=== PATIENT | female | born 1940 | race Caucasian/White ===

== ENCOUNTER → 2019-04-21 14:04 | Outpatient (CLI) | payer MEDICARE, OTHER, SELFPAY ==
--- NOTE | 2019-04-21 | DI.MRI.S_ITS ---
PROCEDURE: MR THORACIC SPINE WO CON INDICATIONS: DIFFUSE IDIOPATHIC SKELETAL HYPEROSTOSIS TECHNIQUE: Noncontrast sagittal T1 spine echo and T2 fast spin echo, sagittal STIR, axial T1 and T2 fast spin echo through the thoracic spine. COMPARISON: [facility] [place], CR, XR THORACIC SPINE 2 VIEWS, 03/26/2019, 10:47. FINDINGS: Image quality: Excellent. Alignment and Curvature: There is normal bony alignment. Bone Marrow: Marrow is of normal overall signal. No acute vertebral body compression fractures. Spinal Cord: Visualized spinal cord is normal in size and signal. A mild posterior transverse disc bulge is seen at T7-T8 without distortion of the adjacent mid thoracic cord. This disc bulge produces mild effacement of the anterior border of the thecal sac, but no focal nerve root impingement. A lesser degree of degenerative disc height reduction and disc desiccation is seen above and below but no nerve root impingement is found. Paraspinous Soft Tissues: No paravertebral masses. Miscellaneous: On axial images, central canal and foramina appear widely patent at all scanned levels. IMPRESSION: Only a mild degree of degenerative disc disease is seen along the thoracic spine, most prominent at T7-T8 where it is associated with a posterior transverse disc bulge is slightly greater at the midline then to the right and left. This is not associated with significant spinal or foraminal stenosis. No compression fracture found. No free herniated disc fragment is suspected. Dictated by: Cj Carmen M.D. on 04/21/2019 at 16:09 Approved by: Cj Carmen M.D. on 04/21/2019 at 16:11
== END ==
PROVIDERS: Visit Provider Physical Medicine & Rehabilitation
DX: M48.10 Ankylosing hyperostosis [Forestier], site unspecified (principal); M51.34 Other intervertebral disc degeneration, thoracic region
CPT/HCPCS: 72146

== ENCOUNTER 2019-10-19 09:25 | Outpatient (CLI) | payer MEDICARE, OTHER, SELFPAY ==
[2019-10-19] VITALS (10 sets, daily range): BP systolic 107–146; BP diastolic 60–74; PULSE 53–65; RESP 16–20; TEMP 36.4; O2SAT 94–100
--- NOTE | 2019-10-19 09:26 | DI.RAD.S_ITS ---
PROCEDURE: PAIN C/T TRANFORAMINAL INJECT INDICATIONS: RADICULOPATHY FINDINGS: Fluoroscopic spot filming was performed to verify placement of spinal needles at the T7-T8 level(s), as labeled on the films. Appropriate location(s) of the needle tip(s) was confirmed by injection of iodinated contrast. IMPRESSION: Fluoroscopy for pain management. Dictated by: Alee Moncada M.D. on 10/19/2019 at 11:25 Approved by: Alee Moncada M.D. on 10/19/2019 at 11:26
[2019-10-19] MEDS: MIDAZOLAM 5 MG/5 ML VIAL IV (10:26)
[2019-10-19] MEDS: IOPAMIDOL 15 ML VIAL 3 ML INJ (10:33)
[2019-10-19] MEDS: DEXAMETHASONE 10 MG/ML VIAL 20 MG INJ (10:34)
[2019-10-19] MEDS: BUPIVACAINE 0.25% (PF) VIAL 2 ML INJ (10:34)
--- NOTE | 2019-10-19 10:38 | PC.NURSE ---
ASSISTING PT OFF TABLE AND TRANSPORTING TO POST PROC AREA IN STABLE CONDITION. PASSING RN CARE OF PT OFF TO ASHLEIGH Guillen RN.
--- NOTE | 2019-10-19 10:43 | P.PCN_ITS ---
Procedures Date/Time Date of procedure: 10/19/19 Time of procedure: 10:44 General Procedure description: PREOP DIAGNOSIS 1. FORMAINAL STENOSIS WITH LE SYMPTOMS, POST OP DIAGNOSIS 1. FORMAINAL STENOSIS WITH LE SYMPTOMS, PROCEDURES 1. FLUOROSCOPICALLY GUIDED CONTRAST CONTROLLED TRANSFORAMINAL EPIDURAL STEROID INJECTION - RIGHT T8/9 TFESI PHYSICIAN: Silvino Cline, DO INDICATIONS Rommel is referred by YUE Toledo for treatment of Foraminal Stenosis with Right thoracic Symptoms FINDINGS Foraminal Nerve Root Compression secondary to disc disease and facet hypertrophy DESCRIPTION OF PROCEDURE Following review of allergy and review of potential side effects and complications, including, but not necessarily limited to, infection, allergic reaction, local tissue breakdown, stroke, temporary or permanent nerve injury, paralysis, and possible , the patient indicated that the patient understood and agreed to proceed. An informed consent document was signed by the patient, witnessed by a nurse, and placed in the patient's chart. Additionally, other treatment options including medications, modalities, and physical therapy were reviewed with the patient. After review of previous anaesthesic history and IV conscious sedation the patient was deemed safe to proceed with todays procedure with IV conscious sedation as ASA class II designation. Safety time-out was performed to confirm patient ID, procedure to be performed and site of procedure. IV sedation was accomplished with 2mg of Versed and 50mcg was administered by the RN after DO order, titrated to patient comfort during the course of the procedure while the patient remained responsive to all verbal commands In the prone position following sterile prep and drape of the lumbar region, the right T7/8 posterior neuroforamen was identified fluoroscopically. The skin was anesthetized via a 25-gauge 1.5-inch needle with 1% lidocaine solution. At this point, a 25-gauge 3.5-inch spinal needle was atraumatically introduced and advanced under fluoroscopic guidance through the posterior right T7/8 neuroforamen to approximately the anterior aspect of the canal. Depth was confirmed on lateral view. Following negative aspiration, injection of approximately 1.5cc of Isovue 200 under live fluoroscopy in the AP view confirmed excellent flow along the nerve root, into the epidural space without vascular or intrathecal uptake observed Radiological data, including multiple fluoroscopic views reveal the needle placement in the right T7/8 posterior neuroforamen. Subsequent views show flow of contrast material flowing superiorly and inferiorly along the nerve root confirming epidural flow. Subsequently, a test dose of 1.5cc of 1% lidocaine solution was administered and patient was observed for signs or symptoms of complications, including abdominal pain, shortness of breath, bilateral upper or lower extremity weakness, nausea and vomiting, prior to steroid injection. At this point, a total of 2cc or 20mg of dexamethasone was injected without incident. The procedure tolerated the procedure well without signs or symptoms of complications prior to transfer to the recovery area continued monitoring without incident.The patient was then transferred to the recovery area where they were observed for an appropriate time after the injection. The patient reported a VAS score of 7 prior to the procedure and a post- procedure VAS of 0. Total Fluoroscopy Time: 17.3 seconds Total Conscious Sedation Time: 24min POST OP INSTRUCTIONS The patient was provided a Pain Log to continue to record their response to the target-specific procedure prior to follow-up visit with their referring physician. Additionally, specific post-injection care instructions and a contact number to our office were provided if concerns arise regarding possible complications associated with the procedure are suspected. Silvino Cline DO Complications: none
== END 2019-10-19 11:06 | disposition home or self-care (01) ==
LOC: RAD 09:26
PROVIDERS: PCP Nurse Practitioner; Visit Provider Physical Medicine & Rehabilitation
DX: M48.04 Spinal stenosis, thoracic region (principal); M51.14 Intervertebral disc disorders with radiculopathy, thoracic region
CPT/HCPCS: 64479; 99152; J1100; J2250; J3010

== ENCOUNTER → 2022-09-06 09:57 | Outpatient (CLI) | payer MEDICARE, OTHER, SELFPAY ==
--- NOTE | 2022-09-06 10:00 | DI.MRI.S_ITS ---
PROCEDURE: MR BRAIN (IAC) WWO CON INDICATIONS: Personal history of other benign neoplasm TECHNIQUE: Noncontrast sagittal T1 spin echo, axial FLAIR, axial gradient echo, axial diffusion and ADC through the brain. Axial thin-slice 3D CISS, coronal TruFISP, axial T1 spin echo with fat saturation through the internal auditory canals. After the administration of contrast, thin slice axial and coronal T1 spin echo with fat saturation through the internal auditory canals, and axial and coronal and sagittal T1 spin echo with fat saturation through the brain. COMPARISON: None. FINDINGS: Image quality: Excellent. Cerebellopontine angles: Within the left internal auditory canal, there is an enhancing nodule seen that measures 7 x 3 x 3 mm. No additional masses can be seen within the internal auditory canals or within the cerebellopontine angle cisterns. CSF spaces: Ventricles are normal in size and shape. No extra-axial fluid collections. Basal cisterns are patent. Brain: No intracranial bleeds or mass effects. Thayer-white matter interface is intact. No abnormal intracranial enhancement. Diffusion weighted images demonstrate no acute ischemic insults. Brainstem appears normal. Normal intravascular flow voids are present. Skull and face: Calvarial marrow signal is normal. Orbits appear normal. Sinuses: Sinuses and mastoids are clear. IMPRESSION: 7 x 3 x 3 mm nodule seen within the left internal auditory canal. High suspicion for vestibular schwannoma. No additional masses or abnormal enhancement can be seen. Dictated by: Jonny Duncan M.D. on 09/06/2022 at 11:40 Approved by: Jonny Duncan M.D. on 09/06/2022 at 11:43
== END ==
PROVIDERS: PCP Registered Nurse; Referring Provider Registered Nurse; Visit Provider Registered Nurse
DX: H93.3X2 Disorders of left acoustic nerve (principal); Z86.018 Personal history of other benign neoplasm
CPT/HCPCS: 70553

== ENCOUNTER → 2022-12-21 10:32 | Outpatient (CLI) | payer MEDICARE, OTHER, SELFPAY ==
--- NOTE | 2022-12-21 10:34 | DI.MRI.S_ITS ---
PROCEDURE: MR THORACIC SPINE WO CON INDICATIONS: THORACIC DISC HERNIATION TECHNIQUE: Noncontrast sagittal T1 spine echo and T2 fast spin echo, sagittal STIR, and T2 fast spin echo through the thoracic spine. COMPARISON: [facility], , MR THORACIC SPINE WO CON, 04/21/2019, 14:10. FINDINGS: Image quality: Excellent. Alignment and Curvature: There is normal bony alignment. Bone Marrow: Marrow is of normal overall signal. No acute vertebral body compression fractures. Spinal Cord: Visualized spinal cord is normal in size and signal. Paraspinous Soft Tissues: No paravertebral masses. Miscellaneous: On axial images, central canal and foramina appear widely patent at all scanned levels. There is a stable shallow right paracentral disc protrusion with associated shallow superior disc extrusion at T7-T8, without nerve root compromise or canal stenosis. At T12-L1, small right paracentral and left paracentral disc protrusions with shallow superior disc extrusions have developed. With there is no canal stenosis or foraminal stenosis. IMPRESSION: 1. Stable findings at T7-T8. Shallow disc protrusion with associated shallow superior disc extrusion without canal stenosis. 2. Interval development of small right paracentral and left paracentral disc protrusions with shallow superior disc extrusions at T12-L1. There is no associated canal stenosis or foraminal stenosis. 3. No canal stenosis or foraminal stenosis noted on the study in the thoracic spine. Dictated by: Isaac Bustillos M.D. on 12/23/2022 at 8:26 Approved by: Isaac Bustillos M.D. on 12/23/2022 at 8:31
== END ==
PROVIDERS: PCP Registered Nurse; Referring Provider Acupuncturist; Visit Provider Acupuncturist
DX: M51.24 Other intervertebral disc displacement, thoracic region (principal); M51.25 Other intervertebral disc displacement, thoracolumbar region
CPT/HCPCS: 72146

== ENCOUNTER 2023-01-17 08:56 | Day surgery (SDC) | payer MEDICARE, OTHER, SELFPAY | END 2023-01-17 09:00 | disposition home or self-care (01) | LOC: ENDO 08:57 | PROVIDERS: PCP Registered Nurse; Referring Provider Surgery; Visit Provider Surgery | DX: Z53.09 Procedure and treatment not carried out because of other contraindication (principal) ==

== ENCOUNTER → 2023-05-31 12:14 | Outpatient (CLI) | payer MEDICARE, OTHER, SELFPAY ==
--- NOTE | 2023-05-31 | DI.MRI.S_ITS ---
PROCEDURE: MR KNEE LT WO CON INDICATIONS: PAIN IN KNEE TECHNIQUE: Noncontrast sagittal PD fast spin echo and T2 fast spin echo with fat saturation, sagittal 3-D FLASH with fat saturation; coronal T1 spin echo and PD fast spin echo with fat saturation, and axial PD fast spin echo with fat saturation through the knee. COMPARISON: [facility] [place], CR, XR KNEE ARTHRITIC SERIES BI, 08/15/2022, 16:28. FINDINGS: Image quality: Excellent. Menisci: There is significant fragmentation and absence of the anterior horn, body, and posterior horn of the lateral meniscus, suggestive of complex chronic tearing and maceration. There is linear oblique and amorphous high signal intensity within the anterior horn and body of the lateral meniscus involving the inner, middle, and peripheral thirds. There is truncation of the free edge of the posterior horn lateral meniscus, indicating radial tearing. Cruciate ligaments: The anterior and posterior cruciate ligaments appear intact. Medial structures: The medial collateral ligament appears intact. Visualized portions of the pes anserinus tendons appear normal. No abnormal bursal fluid. Lateral structures: The lateral collateral ligament, long and short heads of the biceps femoris tendon appear intact. The popliteus tendon appears normal. Iliotibial band appears normal. Anterior structures: The quadriceps and patellar tendons appear intact. Patellar alignment is normal. No femoral trochlear dysplasia or ventral trochlear prominence. No edema in the infrapatellar fat pad. Bones and cartilage: No bone marrow contusions or fractures. Subchondral cyst formation within the medial tibial plateau weight-bearing aspect. Mild subchondral cyst formation within the patellar apex and lateral patellar facet. There is mild tricompartmental periarticular osteophyte formation. Severe articular cartilage loss diffusely overlies the weight-bearing aspects of the medial femoral condyle and medial tibial plateau. Moderate to severe articular cartilage loss overlies the weight-bearing aspects of the lateral compartment. Moderate cartilage loss overlies the medial and lateral patellar facets. Joint space: There is a small knee joint effusion and a small Camara's cyst. Normal appearing synovial plicae are incidentally noted. IMPRESSION: 1. Tricompartmental osteoarthritis with associated articular cartilage loss. 2. Complex tearing and maceration of the medial meniscus. 3. Complex tearing of the lateral meniscus. 4. Knee joint effusion and Camara's cyst. Dictated by: Gab Leong M.D. on 06/02/2023 at 11:31 Approved by: Gab Leong M.D. on 06/02/2023 at 11:35
== END ==
PROVIDERS: PCP Registered Nurse; Referring Provider Acupuncturist; Visit Provider Acupuncturist
DX: S83.232A Complex tear of medial meniscus, current injury, left knee, initial encounter (principal); S83.272A Complex tear of lateral meniscus, current injury, left knee, initial encounter; M17.12 Unilateral primary osteoarthritis, left knee; M71.22 Synovial cyst of popliteal space [Baker], left knee; M25.562 Pain in left knee; M25.462 Effusion, left knee
CPT/HCPCS: 73721